=== PATIENT | female | born 1965 | race Caucasian/White ===

== ENCOUNTER 2019-10-27 16:08 | Emergency (ER) | payer OTHER, SELFPAY ==
[2019-10-27] VITALS (8 sets, daily range): BP systolic 128–165; BP diastolic 63–92; PULSE 88–109; RESP 10–17; TEMP 36.9; O2SAT 97–99; BMI 24.3
--- NOTE | 2019-10-27 16:10 | ED.FALL ---
HPI - Fall General Chief Complaint: Fall Stated Complaint: Fell down stairs, L elbow pain Time Seen by Provider: 10/27/19 16:10 Source: EMS Mode of arrival: EMS Limitations: no limitations History of Present Illness HPI Narrative: Patient is a 54-year-old female who presents after a fall down stairs. He says that she does suffer from vertigo like symptoms. She had a severe case about 5 days ago for which she took medicine for however today was of very mild case she was going up stairs when she slipped and fell backwards landing mostly on her bottom and then hitting her head. There is no loss of consciousness she is complaining of left elbow pain mostly and some left shoulder pain. She denies any chest pain heart palpitation MD complaint: fall Onset (ago): minute(s) Fall from: standing Place fall occurred: home Loss of consciousness: none Related Data Previous Rx's Medication Instructions Recorded diclofenac sodium 75 mg PO BID #30 ect 07/24/17 tramadol 0 mg PO Q4HP PRN #20 tab 07/24/17 meclizine 25 mg PO TID PRN #30 tab 10/27/19 ondansetron HCl [Zofran] 4 mg PO Q8H PRN #10 tab 10/27/19 Allergies Allergy/AdvReac Type Severity Reaction Status Date / Time No Known Drug Allergies Allergy Verified 10/27/19 16:15 Review of Systems Review of Systems ROS Unobtainable: All systems reviewed & are unremarkable except as noted in HPI and below Constitutional Constitutional: Denies chills, Denies fever(s), Denies lethargy and Denies weakness Eyes Eyes: Denies change in vision, Denies eye discharge, Denies irritation and Denies loss of vision Cardiovascular Cardiovascular: Denies chest pain, Denies irregular heart rhythm, Denies lightheadedness, Denies palpitations and Denies orthopnea Gastrointestinal Gastrointestinal: Denies abdominal pain, Denies change in bowel habits, Denies diarrhea, Denies nausea and Denies vomiting Musculoskeletal Musculoskeletal: Reports as per HPI Integumentary/Breasts Skin/Breast: Denies pruritus, Denies erythema, Denies rash and Denies wounds Neurologic Neurologic: Denies loss of vision and Denies weakness Endocrine Endocrine: Denies palpitations Patient History Social History Smoking Status: Unknown if ever smoked Exam Initial Vital Signs Initial Vital Signs: Vital Signs Temperature 98.5 F 07/02/20 16:15 Pulse Rate 104 H 10/27/19 16:15 Respiratory Rate 14 10/27/19 16:15 Blood Pressure 142/67 H 10/27/19 16:15 Pulse Oximetry 99 10/27/19 16:15 GENERAL: Well-appearing, well-nourished and in no acute distress. HEENT: Head posterior scalp laceration NECK: No vertebral tenderness no step-off CARDIOVASCULAR: Regular rate and rhythm without murmurs, rubs or gallops. RESPIRATORY: Breath sounds equal bilaterally, no wheezes rales or rhonchi. ABDOMEN: Soft, nontender. Normoactive bowel sounds all 4 quadrants. No guarding or rebound. BACK: No vertebral tenderness, she does have some sacral tenderness midline no sign of trauma EXTREMITIES: Normal range of motion, no clubbing or edema. Neurovascularly intact Left elbow is tender to touch and tender with pronation and supination NEUROLOGICAL: Alert and oriented x4.Normal gait and speech. SKIN: Warm, dry, no laceration, no petechiae, no rashes or lesions. Procedures Laceration Repair Laceration 1: Site: scalp Size (cm): 1 Description: linear Depth: simple, single layer Skin layer closed with: fang Number of sutures: 1 Course Orders Ordered: ED Orders 10/27/19 16:15 CT cervical spine wo con Stat CT head/brain wo con Stat XR elbow LT min 3V Stat XR sacrum coccyx min 2V Stat 10/27/19 17:50 Basic Metabolic Panel Stat Complete Blood Count AUTO DIFF Stat Discontinued Medications Sodium Chloride (Normal Saline 0.9%) 1,000 mls @ 1,000 mls/hr IV BOLUS ONE Stop: 10/27/19 18:22 Last Admin: 10/27/19 17:36 Dose: 1,000 mls/hr Documented by: JEY Meclizine HCl (Antivert) 50 mg PO NOW ONE Stop: 10/27/19 17:24 Last Admin: 10/27/19 17:41 Dose: 50 mg Documented by: JEY Ondansetron HCl (Zofran) 4 mg IV NOW ONE Stop: 10/27/19 16:33 Last Admin: 10/27/19 16:37 Dose: 4 mg Documented by: JEY Vital Signs Vital signs: Vital Signs - 8 hr 10/27/19 16:15 10/27/19 16:30 10/27/19 17:30 Temperature 98.5 F Pulse Rate 104 H 96 H 89 Respiratory Rate 14 11 L 13 Blood Pressure 142/67 H 128/63 Pulse Oximetry 99 97 MDM - Fall Lab Data Attestation: I reviewed the patient's lab results. Result diagrams: 10/27/19 17:50 10/27/19 17:50 Labs: Lab Results 10/27/19 10/27/19 Range/Units 17:50 17:50 WBC 13.4 H (4.5-11.0) X10^3/uL RBC 5.15 (4.0-5.2) X10^6/uL Hgb 14.6 (12.0-16.0) g/dL Hct 42.9 (36-46) % MCV 83.3 (80-100) fL MCH 28.3 (26-34) PG MCHC 34.0 (30-36) % RDW 13.7 (11.6-14.8) % Plt Count 324 (150-400) X10^3/uL Neut % (Auto) 82.9 H (50-75) % Lymph % (Auto) 12.6 L (25-40) % [place] % (Auto) 3.7 (3-14) % Eos % (Auto) 0.2 L (2-4) % Baso % (Auto) 0.6 (0-2) % Neut # (Auto) 17178 H (1184-9822) /uL Lymph # (Auto) 1700 (1204-7349) /uL [place] # (Auto) 500 (0-900) /uL Eos # (Auto) 0 (0-450) /uL Baso # (Auto) 100 (0-100) /uL Sodium 138 (137-145) mmol/L Potassium 3.6 (3.4-5.1) mmol/L Chloride 103 (98-107) mmol/L Carbon Dioxide 27 (22-32) mmol/L BUN 19 H (7-17) mg/dL Creatinine 0.62 (0.52-1.04) mg/dL Estimated GFR > 60.0 (>60) mL/min BUN/Creatinine Ratio 30.6 H (6-22) Glucose 134 H (70-100) mg/dL Calcium 9.6 (8.4-10.2) mg/dL Imaging Data CT scan - head: Radiologist's Impression: PROCEDURE: CT HEAD/BRAIN WO CON INDICATIONS: fall hit head TECHNIQUE: Noncontrast 4.5 mm thick angled axial sections acquired from the foramen magnum to the vertex, with coronal and sagittal reformats. For radiation dose reduction, the following was used: automated exposure control, adjustment of mA and/or kV according to patient size. COMPARISON: None. FINDINGS: Image quality: Excellent. CSF spaces: Basal cisterns are patent. No extra-axial fluid collections. Ventricles are normal in size and shape. Brain: No midline shift. No intracranial masses or hemorrhage. Love-white matter interface is normal. Skull and face: Calvarium and visualized facial bones are intact, without suspicious lesions. Sinuses: Visualized sinuses and mastoids are clear. IMPRESSION: No acute intracranial disease process. Dictated by: Keyla Mc MD, PhD on 10/27/2019 at 16:49 CT - cervical spine: Radiologist's Impression: PROCEDURE: CT CERVICAL SPINE WO CON INDICATIONS: fall hit head TECHNIQUE: Noncontrast 3 mm thick sections acquired from the skull base to the T4 level. Sagittal and coronal reformats were then constructed. For radiation dose reduction, the following was used: automated exposure control, adjustment of mA and/or kV according to patient size. COMPARISON: None. FINDINGS: Image quality: Diagnostic. Bones: The craniocervical and atlantoaxial joints are well-maintained. The odontoid is intact. The vertebral body heights and prevertebral soft tissues are within normal limits throughout the cervical spine without evidence to suggest acute compression fracture. No other fractures are evident within the cervical spine. The bone mineralization is within normal limits. Mild to moderate degenerative changes of the cervical spine are present with areas of mild disc height loss, and disc osteophyte formation, and moderate facet arthrosis (left greater than right). Soft tissues: No prevertebral soft tissue swelling. The imaged lung apices are clear. Imaged portions of the mediastinum are unremarkable. There may be early centrilobular emphysematous changes within the lung apices. Parotid artery atherosclerosis is noted at the level of the carotid bulb that is not adequately characterized. Otherwise, the remainder of the imaged soft tissues of the neck are within normal limits. IMPRESSION: 1. No acute osseous abnormality of the cervical spine. 2. Mild to moderate degenerative changes of the cervical spine are more prominent involving the left-sided facet joints. Dictated by: Vignesh Padilla M.D. on 10/27/2019 at 15:52 Extremity x-ray #1: Radiologist's Impression: PROCEDURE: XR ELBOW LT 2V INDICATIONS: fall pain TECHNIQUE: 2 views of the elbow were acquired. COMPARISON: None. FINDINGS: Bones: No definite fracture identified although mild cortical irregularity of the radial head and neck. There is severely limited evaluation due to difficulties with patient positioning. Chronic spurring and cortical hypertrophy at the medial epicondyle in keeping with chronic medial epicondylitis syndrome. Soft tissues: No elbow joint effusion. No suspicious soft tissue calcifications. IMPRESSION: Mild cortical irregularity at the radial head and neck raising the possibility of nondisplaced fracture low technically indeterminate and suboptimal evaluation as discussed above.Recommend followup radiographs in 10 days to assess for healing sclerosis Dictated by: Shen Bolanos M.D. on 10/27/2019 at 17:15 Extremity x-ray #2: Radiologist's Impression: PROCEDURE: XR SACRUM COCCYX MIN 2V INDICATIONS: fall pain TECHNIQUE: 3 views of the sacrum and coccyx acquired. COMPARISON: None. FINDINGS: Bones: Possible distal sacral cortical step-off at the anterior cortex on the lateral view only, technically age-indeterminate. Lumbar spondylosis and facet disease. Soft tissues: Visualized bowel gas pattern is normal. No suspicious soft tissue densities. IMPRESSION: Mild cortical irregularity at the anterior cortex of the distal sacrum, suggestive of fracture although technically age-indeterminate. Please correlate clinically Dictated by: Shen Bolanos M.D. on 10/27/2019 at 17:17 MDM Narrative Medical decision making narrative: After imaging patient's CT is cleared she puts her chin to her chest she gets extremely dizzy she says more so than her usual. At that time blood work is ordered IV fluids and meclizine. Meclizine seems to have helped she is feeling better. She is ambulatory to the restroom without any assistance. Discharge Plan Departure Patient Disposition: Home Clinical Impression: Closed sacral fracture Qualifiers: Encounter type: initial encounter Zone of sacrum fracture: unspecified portion of sacrum Qualified Code(s): S32.10XA - Unspecified fracture of sacrum, initial encounter for closed fracture Laceration of scalp Qualifiers: Encounter type: initial encounter Qualified Code(s): S01.01XA - Laceration without foreign body of scalp, initial encounter Fracture of radial head, left, closed Qualifiers: Encounter type: initial encounter Fracture alignment: nondisplaced Qualified Code(s): S52.125A - Nondisplaced fracture of head of left radius, initial encounter for closed fracture Instructions: DI for Laceration Repair -- [place], DI for Vertigo Activity Restrictions/Additional Instructions: *You have been diagnosed with a scalp laceration, left elbow fracture and sacral fracture *What to do: Increase activity as tolerated wear sling at all times need follow-up with your PCP Stable needs to be removed in about 5 days either by the emergency department, walk-in clinic or your primary care provider. You may wash your hair, no hair cuts. *Continue to take medications as directed Meclizine 1 tablet 3 times a day if needed for dizziness Zofran 4 mg every 8 hours if needed for nausea or vomiting *Follow up with your primary care provider in 2-3 days *Return to ER if you should have increasing pain persistent dizziness weakness numbness tingling or any new, worsening or concerning symptoms Prescriptions: New meclizine 25 mg tablet 25 mg PO TID PRN (Reason: dizziness) Qty: 30 RF: 0 ondansetron HCl [Zofran] 4 mg tablet 4 mg PO Q8H PRN (Reason: nausea and vomiting) Qty: 10 RF: 0 No Action tramadol 50 MG tablet 0 mg PO Q4HP PRNQty: 20 RF: 0 diclofenac sodium 75 MG tablet,delayed release (DR/EC) 75 mg PO BID Qty: 30 RF: 0 Referrals: [facility] [Outside]
--- NOTE | 2019-10-27 16:15 | DI.RAD.S_ITS ---
PROCEDURE: XR ELBOW LT 2V INDICATIONS: fall pain TECHNIQUE: 2 views of the elbow were acquired. COMPARISON: None. FINDINGS: Bones: No definite fracture identified although mild cortical irregularity of the radial head and neck. There is severely limited evaluation due to difficulties with patient positioning. Chronic spurring and cortical hypertrophy at the medial epicondyle in keeping with chronic medial epicondylitis syndrome. Soft tissues: No elbow joint effusion. No suspicious soft tissue calcifications. IMPRESSION: Mild cortical irregularity at the radial head and neck raising the possibility of nondisplaced fracture low technically indeterminate and suboptimal evaluation as discussed above.Recommend followup radiographs in 10 days to assess for healing sclerosis Dictated by: Shen Bolanos M.D. on 10/27/2019 at 17:15 Approved by: Shen Bolanos M.D. on 10/27/2019 at 17:17
--- NOTE | 2019-10-27 16:15 | DI.CT.S_ITS ---
PROCEDURE: CT CERVICAL SPINE WO CON INDICATIONS: fall hit head TECHNIQUE: Noncontrast 3 mm thick sections acquired from the skull base to the T4 level. Sagittal and coronal reformats were then constructed. For radiation dose reduction, the following was used: automated exposure control, adjustment of mA and/or kV according to patient size. COMPARISON: None. FINDINGS: Image quality: Diagnostic. Bones: The craniocervical and atlantoaxial joints are well-maintained. The odontoid is intact. The vertebral body heights and prevertebral soft tissues are within normal limits throughout the cervical spine without evidence to suggest acute compression fracture. No other fractures are evident within the cervical spine. The bone mineralization is within normal limits. Mild to moderate degenerative changes of the cervical spine are present with areas of mild disc height loss, and disc osteophyte formation, and moderate facet arthrosis (left greater than right). Soft tissues: No prevertebral soft tissue swelling. The imaged lung apices are clear. Imaged portions of the mediastinum are unremarkable. There may be early centrilobular emphysematous changes within the lung apices. Parotid artery atherosclerosis is noted at the level of the carotid bulb that is not adequately characterized. Otherwise, the remainder of the imaged soft tissues of the neck are within normal limits. IMPRESSION: 1. No acute osseous abnormality of the cervical spine. 2. Mild to moderate degenerative changes of the cervical spine are more prominent involving the left-sided facet joints. Dictated by: Vignesh Padilla M.D. on 10/27/2019 at 15:52 Approved by: Vignesh Padilla M.D. on 10/27/2019 at 15:57
--- NOTE | 2019-10-27 16:15 | DI.CT.S_ITS ---
PROCEDURE: CT HEAD/BRAIN WO CON INDICATIONS: fall hit head TECHNIQUE: Noncontrast 4.5 mm thick angled axial sections acquired from the foramen magnum to the vertex, with coronal and sagittal reformats. For radiation dose reduction, the following was used: automated exposure control, adjustment of mA and/or kV according to patient size. COMPARISON: None. FINDINGS: Image quality: Excellent. CSF spaces: Basal cisterns are patent. No extra-axial fluid collections. Ventricles are normal in size and shape. Brain: No midline shift. No intracranial masses or hemorrhage. Love-white matter interface is normal. Skull and face: Calvarium and visualized facial bones are intact, without suspicious lesions. Sinuses: Visualized sinuses and mastoids are clear. IMPRESSION: No acute intracranial disease process. Dictated by: Keyla Mc MD, PhD on 10/27/2019 at 16:49 Approved by: Keyla Mc MD, PhD on 10/27/2019 at 16:51
--- NOTE | 2019-10-27 16:15 | DI.RAD.S_ITS ---
PROCEDURE: XR SACRUM COCCYX MIN 2V INDICATIONS: fall pain TECHNIQUE: 3 views of the sacrum and coccyx acquired. COMPARISON: None. FINDINGS: Bones: Possible distal sacral cortical step-off at the anterior cortex on the lateral view only, technically age-indeterminate. Lumbar spondylosis and facet disease. Soft tissues: Visualized bowel gas pattern is normal. No suspicious soft tissue densities. IMPRESSION: Mild cortical irregularity at the anterior cortex of the distal sacrum, suggestive of fracture although technically age-indeterminate. Please correlate clinically Dictated by: Shen Bolanos M.D. on 10/27/2019 at 17:17 Approved by: Shen Bolanos M.D. on 10/27/2019 at 17:19
[2019-10-27] MEDS: ONDANSETRON 4 MG/2 ML INJ IV (16:37)
[2019-10-27] MEDS: SODIUM CHLORIDE 0.9% 1,000 ML 1000 ML IV (17:36)
[2019-10-27] MEDS: MECLIZINE HCL 12.5 MG TABLET 50 MG PO (17:41)
[2019-10-27 18:01] LABS: Add Manual Diff / Slide Review NO; Basophils Absolute Auto 100 /uL (0-100); Basophils Percent Auto 0.6 % (0-2); Eosinophils Absolute Auto 0 /uL (0-450); Eosinophils Percent Auto 0.2 % (2-4); Hematocrit 42.9 % (36-46); Hemoglobin 14.6 g/dL (12.0-16.0); Lymphocytes Absolute Auto 1700 /uL (1100-4500); Lymphocytes Percent Auto 12.6 % (25-40); Mean Corpuscular Hemoglobin 28.3 PG (26-34); Mean Corpuscular Volume 83.3 fL (80-100); Monocytes Absolute Auto 500 /uL (0-900); Monocytes Percent Auto 3.7 % (3-14); Neutrophils Absolute Auto 11100 /uL (1500-7000); Neutrophils Percent Auto 82.9 % (50-75); Platelet Count 324 X10^3/uL (150-400); Red Blood Cell Count 5.15 X10^6/uL (4.0-5.2); Red Cell Distribution Width 13.7 % (11.6-14.8); White Blood Cell Count 13.4 X10^3/uL (4.5-11.0)
[2019-10-27 18:11] LABS: BUN Creatinine Ratio 30.6 (6-22); Blood Urea Nitrogen 19 mg/dL (7-17); Calcium 9.6 mg/dL (8.4-10.2); Carbon Dioxide 27 mmol/L (22-32); Chloride 103 mmol/L (98-107); Estimated Glomerular Filt Rate > 60.0 mL/min (>60); Glucose 134 mg/dL (70-100); HEMOLYSIS < 15 (0-50); Potassium 3.6 mmol/L (3.4-5.1); Sodium 138 mmol/L (137-145)
--- NOTE | 2019-10-27 19:18 | PC.NURSE ---
pt ambulated to the bathroom with minimal assistance. Pt complained of slight dizziness when walking. When in the bathroom pt called the call light after sitting on the toilet and complained of feeling lightheaded. Dr carrillo aware
== END 2019-10-27 19:35 | disposition home or self-care (01) ==
PROVIDERS: Emergency Provider Emergency Medicine
DX: S32.10XA Unspecified fracture of sacrum, initial encounter for closed fracture (principal); S01.01XA Laceration without foreign body of scalp, initial encounter; S52.125A Nondisplaced fracture of head of left radius, initial encounter for closed fracture; S09.90XA Unspecified injury of head, initial encounter; W10.9XXA Fall (on) (from) unspecified stairs and steps, initial encounter
CPT/HCPCS: 12001; 36415; 70450; 72125; 72220; 73080; 80048; 85025; 96361; 96374; 99284; J2405

== ENCOUNTER → 2019-11-14 10:31 | Outpatient (CLI) | payer OTHER, SELFPAY ==
--- NOTE | 2019-11-14 10:32 | DI.RAD.S_ITS ---
PROCEDURE: XR KNEE RT 3V INDICATIONS: R knee pain, swelling, twisting injury TECHNIQUE: 3 views of the knee were acquired. COMPARISON: None. FINDINGS: Bones: No fractures or dislocations. No suspicious bony lesions. [id number] degenerative changes of the knee are best appreciated within the patellofemoral compartment. Soft tissues: No joint effusion. No suspicious soft tissue calcifications. IMPRESSION: No acute fractures of the right knee. Dictated by: Vignesh Padilla M.D. on 11/14/2019 at 9:55 Approved by: Vignesh Padilla M.D. on 11/14/2019 at 10:04
== END ==
PROVIDERS: PCP Internal Medicine; Referring Provider Nurse Practitioner; Visit Provider Nurse Practitioner
DX: M25.461 Effusion, right knee (principal); M25.561 Pain in right knee
CPT/HCPCS: 73562

== ENCOUNTER → 2021-12-14 10:01 | Outpatient (CLI) | payer OTHER, SELFPAY ==
--- NOTE | 2021-12-14 10:04 | DI.RAD.S_ITS ---
PROCEDURE: XR FOOT LT MIN 3V INDICATIONS: left foot pain TECHNIQUE: 3 views of the foot were acquired. COMPARISON: [facility], , FOOT 3V LEFT, 07/24/2017, 14:54. FINDINGS: Bones: No fractures or dislocations. No suspicious bony lesions. Large plantar calcaneal spur, stable 2018 Soft tissues: No tibiotalar joint effusion. Achilles tendon appears normal. IMPRESSION: Stable calcaneal spur Approved by: Kurt Alford M.D. on 12/14/2021 at 17:37
== END ==
PROVIDERS: PCP Internal Medicine; Referring Provider Physician Assistant; Visit Provider Physician Assistant
DX: M77.32 Calcaneal spur, left foot (principal); M79.672 Pain in left foot
CPT/HCPCS: 73630

== ENCOUNTER → 2023-10-03 19:51 | Outpatient (ROUT) | payer OTHER, SELFPAY | PROVIDERS: PCP Internal Medicine; Visit Provider Nurse Practitioner Family | DX: J02.9 Acute pharyngitis, unspecified (principal) | CPT/HCPCS: 87070 ==

== ENCOUNTER → 2024-02-29 15:16 | Outpatient (CLI) | payer OTHER, SELFPAY ==
--- NOTE | 2024-02-29 15:19 | DI.RAD.S_ITS ---
PROCEDURE: XR ABDOMEN MIN 2V INDICATIONS: diarrhea TECHNIQUE: 2 views of the abdomen were acquired. COMPARISON: None. FINDINGS: Stool gas pattern: Normal-no evidence of ileus or obstruction. No free intraperitoneal or extraperitoneal air. No gross evidence of ascites Soft tissues: There are 3 rounded calcifications in the right L4-5 paraspinous region ranging up to 3 mm. A collection of 5-6 calcifications ranging up to 4 mm is seen in the right true pelvis in the expected location of the distal ureter. Organs: No gross evidence for organomegaly. IMPRESSION: Calcification overlying the mid and distal right ureter. These may very well represent represent phleboliths or other benign calcifications. Ureteral stones are not excluded please correlate with symptoms Dictated by: Darek Kelly M.D. on 03/01/2024 at 10:29 Approved by: Darek Kelly M.D. on 03/01/2024 at 10:31
[2024-02-29 17:46] LABS: Alanine Aminotransferase 12 IU/L (<35); Albumin 4.1 g/dL (3.5-5.0); Albumin Globulin Ratio 1.2 (1.0-2.8); Alkaline Phosphatase 77 U/L (38-126); Aspartate Aminotransferase 19 IU/L (14-36); BUN Creatinine Ratio 18.6 (6-22); Bilirubin Total 0.3 mg/dL (0.2-1.3); Blood Urea Nitrogen 26 mg/dL (7-17); Calcium 9.8 mg/dL (8.4-10.2); Carbon Dioxide 26 mmol/L (22-32); Chloride 104 mmol/L (98-107); Estimated Glomerular Filt Rate 43 mL/min (>60); Globulin 3.3 g/dL (1.7-4.1); Glucose 135 mg/dL (80-110); HEMOLYSIS < 15 (0-50); Magnesium 1.9 mg/dL (1.6-2.3); Phosphorous 4.5 mg/dL (2.8-4.1); Potassium 4.6 mmol/L (3.4-5.1); Sodium 138 mmol/L (137-145); Total Protein 7.4 g/dL (6.3-8.2)
[2024-02-29 18:00] LABS: Vitamin D 25 Hydroxy (D3) 27.9 ng/mL (30.0-100.0)
[2024-03-01 13:37] LABS: Add Manual Diff / Slide Review NO; Basophils Absolute Auto 100 /uL (0-100); Basophils Percent Auto 1.5 % (0-2); Eosinophils Absolute Auto 200 /uL (0-450); Hematocrit 40.4 % (36-46); Hemoglobin 13.4 g/dL (12.0-16.0); Lymphocytes Absolute Auto 2800 /uL (1100-4500); Lymphocytes Percent Auto 32.3 % (25-40); Mean Corpuscular HGB Conc 33.1 % (30-36); Mean Corpuscular Hemoglobin 27.6 PG (26-34); Mean Corpuscular Volume 83.3 fL (80-100); Monocytes Absolute Auto 400 /uL (0-900); Monocytes Percent Auto 4.9 % (3-14); Neutrophils Absolute Auto 5100 /uL (1500-7000); Neutrophils Percent Auto 59.3 % (50-75); Platelet Count 345 X10^3/uL (150-400); Red Blood Cell Count 4.85 X10^6/uL (4.0-5.2); Red Cell Distribution Width 13.9 % (11.6-14.8); White Blood Cell Count 8.6 X10^3/uL (4.5-11.0)
[2024-03-01 14:03] LABS: Alanine Aminotransferase 44 IU/L (<35); Albumin Globulin Ratio 1.5 (1.0-2.8); Alkaline Phosphatase 78 U/L (38-126); BUN Creatinine Ratio 30.3 (6-22); Bilirubin Total 0.5 mg/dL (0.2-1.3); Blood Urea Nitrogen 20 mg/dL (7-17); Calcium 8.9 mg/dL (8.4-10.2); Carbon Dioxide 25 mmol/L (22-32); Chloride 103 mmol/L (98-107); Estimated Glomerular Filt Rate > 60 mL/min (>60); Globulin 2.7 g/dL (1.7-4.1); Glucose 132 mg/dL (80-110); Lipase 26 U/L (23-300); Sodium 136 mmol/L (137-145); Total Protein 6.7 g/dL (6.3-8.2)
[2024-03-01 14:32] LABS: TSH w/ Reflex to FT4 1.65 uIU/mL (0.47-4.68)
[2024-03-01 14:44] LABS: HEMOLYSIS 93 (0-50); Potassium 4.3 mmol/L (3.4-5.1)
[2024-03-01 14:45] LABS: Aspartate Aminotransferase 44 IU/L (14-36)
[2024-03-02 09:39] LABS: Parathyroid Hormone Int 69 pg/mL (15-65)
== END ==
PROVIDERS: PCP Internal Medicine; Referring Provider Internal Medicine; Visit Provider Internal Medicine
DX: N28.89 Other specified disorders of kidney and ureter (principal); R19.7 Diarrhea, unspecified
CPT/HCPCS: 36415; 74019; 80053; 82306; 83690; 83735; 83970; 84100; 84443; 85025

== ENCOUNTER → 2024-03-11 08:01 | Outpatient (CLI) | payer OTHER, SELFPAY | LOC: LAB 08:02 | PROVIDERS: PCP Internal Medicine; Referring Provider Internal Medicine; Visit Provider Internal Medicine | DX: R19.7 Diarrhea, unspecified (principal) | CPT/HCPCS: 87177; 87205 ==

== ENCOUNTER → 2025-02-14 11:24 | Outpatient (CLI) | payer OTHER, SELFPAY ==
[2025-02-14 12:58] LABS: Add Manual Diff / Slide Review NO; Hematocrit 42.3 % (36-46); Hemoglobin 14.4 g/dL (12.0-16.0); Lymphocytes Absolute Auto 2000 /uL (1100-4500); Mean Corpuscular HGB Conc 34.1 % (30-36); Mean Corpuscular Hemoglobin 28.1 PG (26-34); Mean Corpuscular Volume 82.6 fL (80-100); Platelet Count 311 X10^3/uL (150-400)
[2025-02-14 13:15] LABS: HEMOLYSIS 42 (0-50); Iron 109 ug/dL (37-170)
[2025-02-14 13:19] LABS: Alanine Aminotransferase 19 IU/L (<35); Albumin 4.5 g/dL (3.5-5.0); Albumin Globulin Ratio 1.6 (1.0-2.8); Alkaline Phosphatase 75 U/L (38-126); Blood Urea Nitrogen 20 mg/dL (7-17); Calcium 9.6 mg/dL (8.4-10.2); Carbon Dioxide 27 mmol/L (22-32); Chloride 101 mmol/L (98-107); Creatine Kinase 76 U/L (30-135); Estimated Glomerular Filt Rate > 60 mL/min (>60); Globulin 2.8 g/dL (1.7-4.1); Glucose 110 mg/dL (70-99); HEMOLYSIS 27 (0-50); Magnesium 2.3 mg/dL (1.6-2.3); Potassium 5.0 mmol/L (3.4-5.1); Sodium 137 mmol/L (137-145); Total Protein 7.3 g/dL (6.3-8.2)
[2025-02-14 13:26] LABS: Percent Iron Saturation 32 % (15-50); Total Iron Binding Capacity 340 ug/dL (265-497); Transferrin 320 mg/dL (206-381)
[2025-02-14 13:47] LABS: TSH w/ Reflex to FT4 1.26 uIU/mL (0.47-4.68)
[2025-02-14 13:52] LABS: Ferritin 47 ng/mL (11-264)
== END ==
PROVIDERS: PCP Internal Medicine; Referring Provider Internal Medicine; Visit Provider Internal Medicine
DX: M79.10 Myalgia, unspecified site (principal); M25.50 Pain in unspecified joint; G25.81 Restless legs syndrome
CPT/HCPCS: 36415; 80053; 82550; 82728; 83540; 83550; 83735; 84443; 85025; 85651; 86140